=== PATIENT | female | born 1940 | race Caucasian/White ===

== ENCOUNTER 2017-05-11 01:20 | Emergency (ER) | payer MEDICARE, OTHER ==
[~2017-05-11] VITALS: Ht 175.3 cm; Wt 72.7 kg
[~2017-05-11 01:20] MED LIST: COZAAR100 MG PO; CRESTOR 10MG10 MG PO; LEVOTHYROXIN0.075 MG PO; METOPROLOL25 MG PO; XALATAN 2.5 ML2.5 ML OP
[2017-05-11 01:27] VITALS: TEMP 97.2
[2017-05-11 01:40] LABS: BASO % 0.3 % (0.0-2.0); EOS # 0.1 (0.0-0.7); EOS % 1.2 % (0-4.0); GRAN # 6.5 (1.4-6.5); GRAN % 58.2 % (42.2-75.2); HEMATOCRIT 40.7 % (37.0-47.0); HEMOGLOBIN 13.7 g/dl (12.5-16.0); LYMPH # 3.4 (1.2-3.4); LYMPH % 30.2 % (20.0-51.0); MEAN CELL VOLUME 98 fl (80.0-100.0); MEAN CORPUSCULAR HEMOGLOBIN 33 pg (27.0-31.0); MEAN CORPUSCULAR HGB CONC 34 g/dl (33.0-37.0); MEAN PLATELET VOLUME 11.6 fl (7.4-10.4); MONO # 1.1 (0.1-0.6); MONO % 9.9 % (1.7-9.3); PLATELET COUNT 165 K/mm3 (130-400); RED BLOOD COUNT 4.17 M/mm3 (4.10-5.30); REDCELL DISTRIBUTION WIDTH-CV 11.9 % (11.5-14.5); WHITE BLOOD COUNT 11.2 K/mm3 (4.8-10.8)
[2017-05-11 01:46] LABS: INR 0.9 (0.8-3.0)
[2017-05-11 01:48] LABS: PARTIAL THROMBOPLASTIN TIME 23.1 SECONDS (26.0-37.0)
[2017-05-11 01:49] LABS: ADJUSTED CALCIUM 8.9 mg/dL (8.4-10.2); ALANINE AMINOTRANSFERASE 28 U/L (9-52); ALBUMIN 4.7 gm/dL (3.5-5.0); ALKALINE PHOSPHATASE 85 U/L (50-136); ANION GAP 13 mmol/L (7-16); BILIRUBIN,TOTAL 0.8 mg/dL (0.0-1.0); BLOOD UREA NITROGEN 22 mg/dL (7-17); CALCIUM 9.5 mg/dL (8.4-10.2); CARBON DIOXIDE 24 mmol/L (22-30); CHLORIDE 104 mmol/L (98-107); CREATININE, serum 0.88 mg/dL (0.52-1.25); GLUCOSE 110 mg/dL (74-106); POTASSIUM 4.1 mmol/L (3.4-5.0); SODIUM 142 mmol/L (137-145); TOTAL PROTEIN 7.6 gm/dL (6.4-8.2)
[2017-05-11 02:01] LABS: B-TYPE NATRIURETIC PEPTIDE 148 pg/mL (0-450)
[2017-05-11 02:07] LABS: TROPONIN-I < 0.012 ng/mL (0.000-0.034)
[2017-05-11] MEDS ORDERED: FLEXERIL5 MG PO (03:59)
[2017-05-11] MEDS ORDERED: VOLTAREN 75 DR75 MG PO (03:59)
[2017-05-11 04:23] VITALS: BP 123/69; PULSE 74
== END 2017-05-11 04:35 | disposition home or self-care (01) ==
LOC: COL.ER 01:20
PROVIDERS: Emergency Medicine
DX: M54.6 Pain in thoracic spine (principal); M25.512 Pain in left shoulder; E78.5 Hyperlipidemia, unspecified; E03.9 Hypothyroidism, unspecified; I10 Essential (primary) hypertension; Z90.49 Acquired absence of other specified parts of digestive tract
CPT/HCPCS: J1885; J2270; J2930; J7040

== ENCOUNTER → 2017-05-14 | Outpatient (CLI) | payer MEDICARE, OTHER ==
[~2017-05-14] MED LIST changes: +FLEXERIL5 MG PO; +VOLTAREN 75 DR75 MG PO
== END ==
LOC: MC.RAD 13:20
DX: Z12.31 Encounter for screening mammogram for malignant neoplasm of breast (principal)

== ENCOUNTER 2017-11-02 13:49 | Inpatient (IN) | payer MEDICARE, OTHER ==
[~2017-11-02] VITALS: Ht 175.3 cm; Wt 76.7 kg
[2017-11-02] MEDS ORDERED: CEPHALEXIN500 M1 PO (14:18)
[2017-11-02] MEDS ORDERED: NAPROSYN500 MG PO (14:19)
[2017-11-02] MEDS ORDERED: COMBIGAN 0.2%-010 ML OS (14:22)
[2017-11-02 14:41] LABS: BASO % 0.5 % (0.0-2.0); EOS # 0.1 (0.0-0.7); EOS % 2.1 % (0-4.0); GRAN # 3.2 (1.4-6.5); GRAN % 54.8 % (42.2-75.2); HEMATOCRIT 40.6 % (37.0-47.0); HEMOGLOBIN 13.7 g/dl (12.5-16.0); LYMPH % 33.6 % (20.0-51.0); MEAN CELL VOLUME 97 fl (80.0-100.0); MEAN CORPUSCULAR HEMOGLOBIN 33 pg (27.0-31.0); MEAN CORPUSCULAR HGB CONC 34 g/dl (33.0-37.0); MEAN PLATELET VOLUME 11.5 fl (7.4-10.4); MONO # 0.5 (0.1-0.6); MONO % 8.8 % (1.7-9.3); PLATELET COUNT 172 K/mm3 (130-400); RED BLOOD COUNT 4.19 M/mm3 (4.10-5.30); REDCELL DISTRIBUTION WIDTH-CV 11.7 % (11.5-14.5)
[2017-11-02 14:46] LABS: PROTHROMBIN TIME 11.7 SECONDS (9.7-12.8)
[2017-11-02 14:49] LABS: PARTIAL THROMBOPLASTIN TIME 30.1 SECONDS (26.0-37.0)
[2017-11-02 14:52] LABS: ALANINE AMINOTRANSFERASE 41 U/L (9-52); ALBUMIN 4.7 gm/dL (3.5-5.0); ALKALINE PHOSPHATASE 101 U/L (50-136); ANION GAP 11 mmol/L (7-16); AST,SGOT 38 U/L (15-37); BILIRUBIN,TOTAL 0.9 mg/dL (0.0-1.0); BLOOD UREA NITROGEN 17 mg/dL (7-17); CALCIUM 9.8 mg/dL (8.4-10.2); CARBON DIOXIDE 24 mmol/L (22-30); CHLORIDE 108 mmol/L (98-107); CREATININE, serum 0.88 mg/dL (0.52-1.25); GLUCOSE 107 mg/dL (74-106); SODIUM 142 mmol/L (137-145); TOTAL PROTEIN 7.6 gm/dL (6.4-8.2)
[2017-11-02 15:03] LABS: TROPONIN-I < 0.012 ng/mL (0.000-0.034)
[2017-11-02 18:02] VITALS: BP 144/68; PULSE 77; TEMP 97.7
[2017-11-02 20:00] VITALS: BP 146/63; PULSE 71; TEMP 98.4
[2017-11-03] VITALS (7 sets, daily range): BP systolic 130–165; BP diastolic 59–87; PULSE 64–100; TEMP 98–98.2
[2017-11-03 07:30] LABS: CHOLESTEROL RISK RATIO 2.4
[2017-11-03] MEDS ORDERED: ZANTAC 150MG T150 MG PO (14:41)
== END 2017-11-03 15:20 | disposition home or self-care (01) | DRG 313 ==
LOC: COL.ER 13:49 → SURG 16:43
PROVIDERS: Emergency Medicine; Family Medicine
DX: R07.89 Other chest pain (principal); I10 Essential (primary) hypertension; E78.5 Hyperlipidemia, unspecified; E03.9 Hypothyroidism, unspecified
CPT/HCPCS: 99223-AI; A9502; J2785; J7030

== ENCOUNTER → 2019-08-06 | Outpatient (CLI) | payer MEDICARE, OTHER ==
[~2019-08-06] MED LIST changes: +CEPHALEXIN500 M1 PO; +COMBIGAN 0.2%-010 ML OS; +NAPROSYN500 MG PO; +ZANTAC 150MG T150 MG PO
== END ==
LOC: MC.RAD 13:37
DX: Z12.31 Encounter for screening mammogram for malignant neoplasm of breast (principal)

== ENCOUNTER → 2020-08-08 | Outpatient (CLI) | payer MEDICARE, OTHER | LOC: MC.RAD 13:40 | DX: Z12.31 Encounter for screening mammogram for malignant neoplasm of breast (principal) ==

== ENCOUNTER → 2021-08-10 | Outpatient (CLI) | payer MEDICARE, OTHER | LOC: MC.RAD 13:00 | DX: Z12.31 Encounter for screening mammogram for malignant neoplasm of breast (principal) ==